=== PATIENT | male | born 1935 | race Caucasian/White ===

== ENCOUNTER 2016-03-24 08:36 | Emergency (ER) | payer OTHER ==
[~2016-03-24] VITALS: Ht 182.9 cm; Wt 108.9 kg
[~2016-03-24 08:36] MED LIST: ASPIR 8181 MG PO; BENTYL20 MG PO; HCTZ/LISINOPRIL1 TA1 PO; LOPRESSOR50 MG PO; METFORMIN HCL500 MG PO; PRIMIDONE50 MG PO; SIMVASTATIN20 MG PO; ZOFRAN4 M1 SL
[2016-03-24 08:42] VITALS: BP 149/86
--- NOTE | 2016-03-24 08:53 | ED INFLUENZA/URI COMPLAINT ---
History of Present Illness General Chief Complaint: Upper Respiratory Sx/Fever Stated Complaint: URI [id number] Source: patient Exam Limitations: no limitations Vital Signs & Intake/Output Vital Signs & Intake/Output Vital Signs Date Time Temp Pulse Resp B/P Pulse O2 O2 Flow FiO2 Ox Delivery Rate 03/24 0908 96 03/24 0842 99.1 102 20 149/86 95 Room Air Allergies Coded Allergies: NO KNOWN ALLERGIES (11/05/11) Reconcile Medications Albuterol Sulfate (Proventil Hfa) 90 MCG HFA.AER.AD 2 PUF INH Q4 SOB Aspirin (Ecotrin) 81 MG TABLET.DR 1 TAB PO EOD HEART HEALTH (Reported) Benzonatate 200 MG CAPSULE 1 CAP PO TIDPRN COUGH Dicyclomine Hydrochloride (Bentyl) 20 MG TAB 1 TAB PO TID PRN ABDOMINAL CRAMPING Doxycycline Hyclate 100 MG TABLET 1 TAB PO AD COUGH 2 TABS BID FOR 3 DAYS 1 TAB BID FOR 3 DAYS Hydrochlorothiazide/Lisinopr (Hctz/Lisinopril 12.5 MG-20 MG) 1 TAB TAB 1 TAB PO DAILY BP (Reported) Metformin Hydrochloride (Metformin HCl) 500 MG TAB 1 TAB PO QPM DIABETES ( Reported) Metoprolol Tartrate (Lopressor) 50 MG TAB 1 TAB PO BID BP (Reported) Ondansetron (Zofran Odt) 4 MG ODT 1 TAB SL Q4-6 PRN NAUSEA Primidone 50 MG TABLET 1 TAB PO DAILY BENIGN ESSENTIAL TREMOR (Reported) Simvastatin (Zocor) 20 MG TAB 1 TAB PO QPM CHOLESTEROL (Reported) Triage Note: RECENTLY ON ANTIBIOTIC FOR COUGH FINISHED 3 WEEKS AGO, FELT BETTER X 2 WEEKS. PT STATES ON TUESDAY NON PRODUCTIVE COUGH AND HEADACHE. STATES SOB WITH EXERTION Triage Nurses Notes Reviewed? yes Onset: Abrupt Duration: day(s): (FEW), constant, continues in ED Timing: recent history Severity: moderate, severe No Modifying Factors: none HPI: 80-year-old male comes into emergency room with nasal congestion and runny nose pressure aches and cough that I'm going on for the past few days. Denies any vomiting. Denies any chest pain or shortness of breath. No fever. Patient was sick a few weeks ago and was prescribed antibiotics and then symptoms resolved. Denies any other associated symptoms. (SANGITA HERRON) Past History Travel History Traveled to [place] past 21 day No Medical History Any Pertinent Medical History? see below for history Cardiovascular: hypertension, hyperlipidemia Psychiatric: anxiety Endocrine: diabetes Surgical History Surgical History: non-contributory Psychosocial History What is your primary language Afghan Tobacco Use: Never used ETOH Use: occasional use Illicit Drug Use: denies illicit drug use Family History Hx Contributory? No (SANGITA HERRON) Review of Systems Review of Systems Constitutional: Reports: see HPI. EENTM: Reports: see HPI. Respiratory: Reports: see HPI. Cardiovascular: Reports: no symptoms. GI: Reports: no symptoms. Genitourinary: Reports: no symptoms. Musculoskeletal: Reports: no symptoms. Skin: Reports: no symptoms. Neurological/Psychological: Reports: no symptoms. Hematologic/Endocrine: Reports: no symptoms. Immunologic/Allergic: Reports: no symptoms. All Other Systems: Reviewed and Negative (SANGITA HERRON) Physical Exam Physical Exam General Appearance: well developed/nourished, no apparent distress, alert Head: atraumatic, normal appearance Eyes: Bilateral: normal appearance, EOMI. Ears, Nose, Throat: normal ENT inspection, moist mucous membrane, Tympanic normal, nasal congestion Neck: normal inspection, full range of motion Respiratory: normal breath sounds, no respiratory distress Cardiovascular: regular rate/rhythm Back: normal inspection Extremities: normal inspection Neurologic/Psych: awake, alert, oriented x 3, normal gait, normal mood/affect Skin: intact, normal color Core Measures Severe Sepsis Present: No Septic Shock Present: No (SANGITA HERRON) Progress Differential Diagnosis: influenza, meningitis, neutropenia, otitis, pneumonia, pharyngitis, sinusitis Plan of Care: Orders Procedure Date/time Status XRY-CHEST XRAY, PA AND LATERAL 03/24 5483 Active Diagnostic Imaging: Viewed by Me: Radiology Read. Discussed w/RAD: Radiology Read. Radiology Impression: EXAM TYPE: RAD - XRY-CHEST XRAY, PA AND LATERAL EXAMINATION: XR CHEST CLINICAL INFORMATION: Cough COMPARISON: Report of CXR findings from 01/03/2011 TECHNIQUE: PA and lateral views of the chest were obtained. FINDINGS: Lungs are well expanded and clear; no pulmonary edema, focal consolidation or pleural effusion. Cardiac silhouette is chronically enlarged. There is atherosclerotic calcification of the ectatic appearing tortuous thoracic aorta. 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 IMPRESSION: 1. No evidence of pneumonia. 2. Cardiomegaly without pulmonary edema or pleural effusion. DICTATED BY: MARINO SORTO MD DATE/TIME DICTATED:03/24/16911 FOIL SPINNER:SHUKRI DATE/ TIME TRANSCRIBED:03/24/16911 CONFIDENTIAL, DO NOT COPY WITHOUT APPROPRIATE AUTHORIZATION. Initial ED EKG: none Comments: 03/24/2016 10:04:37 AM Patient clinically looks well. Nontoxic-appearing. In no apparent distress. Patient's symptoms most consistent with viral illness. Return if any other concerns. Rest. Patient understands and agrees with plan of care. (JULIA ARCE,SANGITA) Departure Departure Disposition: HOME OR SELF CARE Condition: Stable Clinical Impression Primary Impression: Sinusitis Secondary Impressions: Bronchitis Referrals: SONAL RIOS,ROSALBA Kitchen (PCP/Family) Additional Instructions: Take doxycycline, albuterol, and Tessalon Perles as prescribed. Follow-up with your primary care doctor. Return if any concerns worsening symptoms. Please go over all results of today's visit with your primary care doctor. Contact your primary care doctor to let them know you were here in the emergency room. There may be nonspecific findings which may not be related to your visit today here in the emergency room but may require further evaluation and chronic monitoring by your primary care doctor. If you had a laceration today the chance of foreign body always remains. You should follow-up with your primary care doctor for recheck in 3-5 days for a wound check. If you had an x-ray done there is a chance that a fracture could have been missed on initial read and you should follow-up with your primary care doctor for repeat x-rays if symptoms persist. If your blood pressure was elevated here in the emergency room please have rechecked by her primary care doctor within the next 48 hours by your primary care doctor. If you were prescribed a narcotic here in the emergency room or any type of controlled substances you're not allowed to drive while taking this medication or operate any type of heavy machinery. Narcotics can make you feel lightheaded dizziness nausea and can cause constipation. You may need to cotton picker a stool softener. Thank you for choosing [facility] emergency room. Please return to the emergency room immediately if you have any other concerns worsening of symptoms. Departure Forms: Customer Survey General Discharge Information Prescriptions: Current Visit Scripts Doxycycline Hyclate 1 TAB PO AD #18 TAB 2 TABS BID FOR 3 DAYS 1 TAB BID FOR 3 DAYS Benzonatate 1 CAP PO TIDPRN #30 CAP Albuterol Sulfate (Proventil Hfa) 2 PUF INH Q4 #1 INHAL Comments 03/24/2016 10:03:01 AM Patient clinically looks well. Nontoxic-appearing. In no apparent distress. Resting comfortably in room. (JULIA ARCE,SANGITA) PA/CHECKERING MACHINE ADJUSTER Co-Sign Statement Statement: ED Attending supervision documentation- [X] I saw and evaluated the patient. I have also reviewed all the pertinent lab results and diagnostic results. I agree with the findings and the plan of care as documented in the PA's/CHECKERING MACHINE ADJUSTER's documentation. [X] I have reviewed the ED Record and agree with the PA's/CHECKERING MACHINE ADJUSTER's documentation. [] Additions or exceptions (if any) to the PAs/CHECKERING MACHINE ADJUSTER's note and plan are summarized below: [] (CHERELLE RIOS,HELEN)
--- NOTE | 2016-03-24 09:18 | RADIOLOGY REPORT ---
EXAMINATION: XR CHEST CLINICAL INFORMATION: Cough COMPARISON: Report of CXR findings from 01/03/2011 TECHNIQUE: PA and lateral views of the chest were obtained. FINDINGS: Lungs are well expanded and clear; no pulmonary edema, focal consolidation or pleural effusion. Cardiac silhouette is chronically enlarged. There is atherosclerotic calcification of the ectatic appearing tortuous thoracic aorta. 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 IMPRESSION: 1. No evidence of pneumonia. 2. Cardiomegaly without pulmonary edema or pleural effusion.
[2016-03-24] MEDS ORDERED: DOXYCYCLINE HY100 M4 PO (09:42)
[2016-03-24] MEDS ORDERED: BENZONATATE200 M1 PO (09:42)
[2016-03-24] MEDS ORDERED: PROVENTIL HFA6.7 GM INH (09:42)
== END 2016-03-24 09:48 ==
LOC: ERH 08:36
DX: J32.9 Chronic sinusitis, unspecified (principal); J40 Bronchitis, not specified as acute or chronic